=== PATIENT | male | born 1960 | race Caucasian/White ===

== ENCOUNTER 2021-07-01 22:16 | Inpatient (IN) | payer OTHER, SELFPAY ==
[2021-07-01] MEDS ORDERED: Ventolin HFA Inhaler 60 PUFF INHALER ONE (22:35)
[2021-07-01] MEDS ORDERED: predniSONE 20 MG TAB ONE (22:35)
[2021-07-01] MEDS ORDERED: Magnesium 2 GM/50 ML BAG (IN WATER) ONE (22:35)
[2021-07-01 22:40] LABS: #Basophils 0.1 10x3/uL (0.0-0.2); #Neutrophils 14.3 10x3/uL (1.5-8.4); %Basophils 0.3 % (0.0-2.0); %Eosinophils 0.1 % (0.0-6.0); %Lymphocytes 10.2 % (18.0-47.0); %Monocytes 10.8 % (0.0-10.0); %Neutrophils 78.2 % (40.0-75.0); Hemoglobin 16.5 g/dL (13.5-17.5); Mean Corpuscular HGB CONC 33.9 g/dL (32.0-36.0); Mean Corpuscular Hemoglobin 31.7 pg (27.0-33.0); Mean Corpuscular Volume 93.7 fl (81.2-95.1); Mean Platelet Volume 9.9 fl (7.4-10.4); Platelet Count 193 10x3/uL (150-450); RBC Distribution Width 13.1 % (11.5-14.5); White Blood Cell (WBC) Count 18.3 10x3/uL (3.5-10.5)
[2021-07-01 22:53] LABS: ALT (SGPT) 18 U/L (8-55); AST (SGOT) 24 U/L (5-34); Albumin 3.6 g/dL (3.4-4.8); Alkaline Phosphatase 128 U/L (40-110); Anion Gap 14 mmol/L (10-20); BUN (Urea Nitrogen) 18 mg/dL (8.4-25.7); Bilirubin, Total 2.1 mg/dL (0.2-1.2); Calc. Creatinine Clearance 0 mL/min (70-130); Calcium 7.9 mg/dL (7.8-10.44); Carbon Dioxide 18 mmol/L (23-31); Chloride 105 mmol/L (98-107); Glucose 132 mg/dL (80-115); Potassium 3.8 mmol/L (3.5-5.1); Protein, Total 6.6 g/dL (5.8-8.1); Sodium 133 mmol/L (136-145)
[2021-07-01] MEDS ORDERED: Azithromycin 250 MG TAB ONE (22:59)
[2021-07-01] MEDS ORDERED: cefTRIAXone\\ROCEPHIN 2 GM VIAL ONE (22:59)
[2021-07-01] MEDS ORDERED: HYDROcodone/Acetaminophen 5/325 mg Tablet PO PRN (23:29)
[2021-07-01] MEDS ORDERED: Zolpidem Tartrate 5 MG TAB PO PRN (23:29)
[2021-07-01] MEDS ORDERED: Calcium Carbonate 500 MG ChewTAB PO PRN (23:29)
[2021-07-01] MEDS ORDERED: Ondansetron PF 4 MG/2 ML Vial IVP PRN (23:29)
[2021-07-01] MEDS ORDERED: Senokot S 8.6-50 MG TAB PO PRN (23:29)
[2021-07-01 23:43] LABS: SARS-CoV-2 NAA Rapid Test Not Detected (NotDetected)
[2021-07-02 00:34] VITALS: BMI 23.0
[2021-07-02] MEDS ORDERED: Sodium Chloride 0.9% 1,000 ML IV SCH (01:00)
[2021-07-02] MEDS ORDERED: FLU VACC QS2021-22(6MOS UP)/PF 60 MCG/0.5 ML SYRINGE IM ONE (01:15)
[2021-07-02 02:55] LABS: Bilirubin Neg (Negative); Blood, Urine 10 (Negative); Clarity Clear (Clear); Glucose, Urine (Dipstick) Normal (Negative); Ketone, Urine 50 mg/dL (Negative); Leukocyte Negative (Negative); Nitrite Negative (Negative); Protein, Urine (Dipstick) 100 mg/dl (Neg-Trace); Specific Gravity, Urine 1.015 (1.002-1.036)
[2021-07-02 03:05] LABS: Legionella Urinary Ag Negative (Negative); Strep pneumo Urine Ag NEGATIVE (NEGATIVE)
[2021-07-02 03:11] LABS: RBC/HPF 0-3 HPF (0-3)
[2021-07-02 03:12] LABS: Bacteria/HPF Rare-Few HPF (None Seen); Squamous Epithelial 0-3 HPF (0-3)
[2021-07-02] MEDS: Guaifenesin DM 100-10/5 ML UDCUP PO PRN ×2 (04:03→08:44)
[2021-07-02] MEDS: methylPREDNISolone Sod Succ 40 MG VIAL IVP SCH ×4 (05:29→23:14)
[2021-07-02 06:26] LABS: ALT (SGPT) 18 U/L (8-55); AST (SGOT) 28 U/L (5-34); Albumin 3.5 g/dL (3.4-4.8); Alkaline Phosphatase 121 U/L (40-110); Anion Gap 13 mmol/L (10-20); BUN (Urea Nitrogen) 15 mg/dL (8.4-25.7); Bilirubin, Total 1.4 mg/dL (0.2-1.2); Calc. Creatinine Clearance 99 mL/min (70-130); Calcium 8.2 mg/dL (7.8-10.44); Carbon Dioxide 18 mmol/L (23-31); Chloride 107 mmol/L (98-107); Globulin 3.5 g/dL (2.4-3.5); Glucose 191 mg/dL (80-115); Potassium 4.1 mmol/L (3.5-5.1); Sodium 134 mmol/L (136-145)
[2021-07-02 06:51] LABS: #Monocytes 0.6 10x3/uL (0.0-1.1); #Neutrophils 12.2 10x3/uL (1.5-8.4); %Basophils 0.1 % (0.0-2.0); %Lymphocytes 5.8 % (18.0-47.0); %Monocytes 4.2 % (0.0-10.0); %Neutrophils 89.3 % (40.0-75.0); Hemoglobin 15.5 g/dL (13.5-17.5); Mean Corpuscular HGB CONC 33.5 g/dL (32.0-36.0); Mean Corpuscular Hemoglobin 31.6 pg (27.0-33.0); Mean Corpuscular Volume 94.3 fl (81.2-95.1); Mean Platelet Volume 10.9 fl (7.4-10.4); Platelet Count 200 10x3/uL (150-450); RBC Distribution Width 13.2 % (11.5-14.5); Red Blood Cell (RBC) Count 4.91 10x6/uL (4.32-5.72); White Blood Cell (WBC) Count 13.7 10x3/uL (3.5-10.5)
[2021-07-02] MEDS: Mometasone/Formoterol 60 PUFF AER INH SCH ×2 (07:30→19:20)
[2021-07-02] MEDS: Folic Acid 1 MG TAB PO SCH (08:04)
[2021-07-02] MEDS: Enoxaparin Sodium 40 MG/0.4 ML SYRINGE SC SCH (08:04)
[2021-07-02] MEDS: guaiFENesin ER 600 MG TAB PO SCH ×2 (08:04→20:53)
[2021-07-02] MEDS: Nicotine 21 MG PATCH TD SCH (08:05)
[2021-07-02] MEDS: Thiamine 100 MG TAB PO SCH (08:08)
[2021-07-02] MEDS: Cefepime 1 GM in Sodium Chloride 0.9% 100 ML IVPB SCH ×2 (08:47→20:52)
[2021-07-02] MEDS: guaiFENesin/Codeine Phosphate 100 mg/10 mg 5 ml UD Cup PO PRN ×2 (14:46→20:57)
[2021-07-02] MEDS ORDERED: Azithromycin 500 MG VIAL ONE (23:13)
[2021-07-02] MEDS: Benzonatate 100 MG CAP PO PRN (23:14)
[2021-07-02] MEDS: Azithromycin 500 MG in Sodium Chloride 0.9% 250 ML 250 ML IVPB SCH (23:14)
[2021-07-03] MEDS: guaiFENesin/Codeine Phosphate 100 mg/10 mg 5 ml UD Cup PO PRN ×4 (03:27→23:04)
[2021-07-03 04:17] LABS: Hemoglobin 14.4 g/dL (13.5-17.5); Mean Corpuscular HGB CONC 32.8 g/dL (32.0-36.0); Mean Corpuscular Hemoglobin 31.2 pg (27.0-33.0); Mean Platelet Volume 10.7 fl (7.4-10.4); Platelet Count 228 10x3/uL (150-450); RBC Distribution Width 12.9 % (11.5-14.5); Red Blood Cell (RBC) Count 4.62 10x6/uL (4.32-5.72); White Blood Cell (WBC) Count 21.1 10x3/uL (3.5-10.5)
[2021-07-03 04:22] LABS: Anion Gap 11 mmol/L (10-20); BUN (Urea Nitrogen) 20 mg/dL (8.4-25.7); Calc. Creatinine Clearance 104 mL/min (70-130); Calcium 8.4 mg/dL (7.8-10.44); Carbon Dioxide 20 mmol/L (23-31); Chloride 110 mmol/L (98-107); Glucose 186 mg/dL (80-115); Sodium 137 mmol/L (136-145)
[2021-07-03] MEDS: methylPREDNISolone Sod Succ 40 MG VIAL IVP SCH ×4 (05:05→23:05)
[2021-07-03 05:56] LABS: MDiff Complete? YES
[2021-07-03 05:58] LABS: Band 4 % (5-11); Lymphocytes 6 % (21-51); Monocytes 3 % (0-10); Neutrophil 87 % (42-75)
[2021-07-03 06:00] LABS: Platelet Morphology Comment Appears Adequate; RBC Morphology Normal
[2021-07-03] MEDS: Mometasone/Formoterol 60 PUFF AER INH SCH ×2 (07:20→19:02)
[2021-07-03] MEDS: Benzonatate 100 MG CAP PO PRN ×2 (07:45→20:00)
[2021-07-03] MEDS: guaiFENesin ER 600 MG TAB PO SCH ×2 (07:45→20:00)
[2021-07-03] MEDS: Folic Acid 1 MG TAB PO SCH (07:45)
[2021-07-03] MEDS: Enoxaparin Sodium 40 MG/0.4 ML SYRINGE SC SCH (07:46)
[2021-07-03] MEDS: Nicotine 21 MG PATCH TD SCH (07:46)
[2021-07-03] MEDS: Thiamine 100 MG TAB PO SCH (07:53)
[2021-07-03 09:06] LABS: Actual Bicarbonate (HCO3v) 19 mEq/L (22-28); Base Excess -4.6 mEq/L (-2.0 to +3.0); Calcium, Ionized (venous) 1.03 mmol/L (1.16-1.32); Chloride (VBG) 103 mmol/L (98-106); Hemoglobin (Hb) 16.6 g/dL (13.1-17.2); Potassium (VBG) 3.68 mmol/L (3.70-5.30); Puncture Site Other Site; Sodium 133.6 mmol/L (133-146)
[2021-07-03] MEDS: Cefepime 1 GM in Sodium Chloride 0.9% 100 ML IVPB SCH ×2 (09:14→20:00)
[2021-07-03] MEDS: Acetaminophen 325 MG TAB PO PRN (23:04)
[2021-07-03] MEDS: Azithromycin 500 MG in Sodium Chloride 0.9% 250 ML 250 ML IVPB SCH (23:05)
[2021-07-04] MEDS: methylPREDNISolone Sod Succ 40 MG VIAL IVP SCH ×3 (05:34→17:39)
[2021-07-04] MEDS: guaiFENesin/Codeine Phosphate 100 mg/10 mg 5 ml UD Cup PO PRN ×2 (05:34→11:58)
[2021-07-04] MEDS: Mometasone/Formoterol 60 PUFF AER INH SCH ×2 (07:20→20:05)
[2021-07-04 08:27] LABS: Anion Gap 12 mmol/L (10-20); BUN (Urea Nitrogen) 20 mg/dL (8.4-25.7); Calc. Creatinine Clearance 116 mL/min (70-130); Calcium 8.6 mg/dL (7.8-10.44); Carbon Dioxide 23 mmol/L (23-31); Chloride 106 mmol/L (98-107); Glucose 157 mg/dL (80-115); Potassium 4.2 mmol/L (3.5-5.1); Sodium 137 mmol/L (136-145)
[2021-07-04 08:28] LABS: Hemoglobin 14.5 g/dL (13.5-17.5); Mean Corpuscular HGB CONC 33.2 g/dL (32.0-36.0); Mean Corpuscular Hemoglobin 31.6 pg (27.0-33.0); Mean Corpuscular Volume 95.2 fl (81.2-95.1); Mean Platelet Volume 10.8 fl (7.4-10.4); Platelet Count 222 10x3/uL (150-450); RBC Distribution Width 13.2 % (11.5-14.5); Red Blood Cell (RBC) Count 4.59 10x6/uL (4.32-5.72); White Blood Cell (WBC) Count 20.3 10x3/uL (3.5-10.5)
[2021-07-04] MEDS: Enoxaparin Sodium 40 MG/0.4 ML SYRINGE SC SCH (08:54)
[2021-07-04] MEDS: Nicotine 21 MG PATCH TD SCH (08:55)
[2021-07-04] MEDS: Cefepime 1 GM in Sodium Chloride 0.9% 100 ML IVPB SCH ×2 (08:57→20:05)
[2021-07-04 10:16] LABS: Band 1 % (5-11); Lymphocytes 2 % (21-51); Monocytes 10 % (0-10); Neutrophil 87 % (42-75)
[2021-07-04 10:17] LABS: MDiff Complete? YES
[2021-07-04 10:18] LABS: Large Platelets SLIGHT; Platelet Morphology Comment Appears Adequate; RBC Morphology Normal
[2021-07-04] MEDS ORDERED: Furosemide 40 MG/4 ML VIAL SLOW IVP SCH ×2 (10:30→10:45)
[2021-07-04] MEDS: Folic Acid 1 MG TAB PO SCH (10:56)
[2021-07-04] MEDS: Thiamine 100 MG TAB PO SCH (10:57)
[2021-07-04] MEDS: guaiFENesin ER 600 MG TAB PO SCH ×2 (10:57→20:06)
[2021-07-04] MEDS ORDERED: Amlodipine 10 MG TAB PO SCH (13:45)
[2021-07-05] MEDS: Benzonatate 100 MG CAP PO PRN ×2 (00:02→23:41)
[2021-07-05] MEDS: methylPREDNISolone Sod Succ 40 MG VIAL IVP SCH ×5 (00:02→23:36)
[2021-07-05] MEDS: guaiFENesin/Codeine Phosphate 100 mg/10 mg 5 ml UD Cup PO PRN ×3 (00:03→23:41)
[2021-07-05] MEDS: Azithromycin 500 MG in Sodium Chloride 0.9% 250 ML 250 ML IVPB SCH ×2 (00:11→23:35)
[2021-07-05 03:31] LABS: #Monocytes 1.6 10x3/uL (0.0-1.1); #Neutrophils 16.6 10x3/uL (1.5-8.4); %Basophils 0.2 % (0.0-2.0); %Monocytes 8.4 % (0.0-10.0); %Neutrophils 86.9 % (40.0-75.0); Hemoglobin 15.3 g/dL (13.5-17.5); Mean Corpuscular HGB CONC 33.9 g/dL (32.0-36.0); Mean Corpuscular Hemoglobin 31.5 pg (27.0-33.0); Mean Corpuscular Volume 92.8 fl (81.2-95.1); Mean Platelet Volume 10.2 fl (7.4-10.4); Platelet Count 203 10x3/uL (150-450); RBC Distribution Width 13.2 % (11.5-14.5); Red Blood Cell (RBC) Count 4.86 10x6/uL (4.32-5.72); White Blood Cell (WBC) Count 19.1 10x3/uL (3.5-10.5)
[2021-07-05 04:19] LABS: Anion Gap 12 mmol/L (10-20); BUN (Urea Nitrogen) 26 mg/dL (8.4-25.7); Calc. Creatinine Clearance 114 mL/min (70-130); Calcium 8.6 mg/dL (7.8-10.44); Carbon Dioxide 25 mmol/L (23-31); Glucose 179 mg/dL (80-115); Potassium 4.2 mmol/L (3.5-5.1); Sodium 136 mmol/L (136-145)
[2021-07-05 04:34] LABS: Chloride 103 mmol/L (98-107)
[2021-07-05] MEDS: Mometasone/Formoterol 60 PUFF AER INH SCH ×2 (07:58→20:20)
[2021-07-05] MEDS: Enoxaparin Sodium 40 MG/0.4 ML SYRINGE SC SCH (08:45)
[2021-07-05] MEDS: Cefepime 1 GM in Sodium Chloride 0.9% 100 ML IVPB SCH ×2 (08:46→20:20)
[2021-07-05] MEDS: guaiFENesin ER 600 MG TAB PO SCH ×3 (08:47→20:27)
[2021-07-05] MEDS: Folic Acid 1 MG TAB PO SCH (08:47)
[2021-07-05] MEDS: Thiamine 100 MG TAB PO SCH (08:47)
[2021-07-05] MEDS: Amlodipine 10 MG TAB PO SCH (08:48)
[2021-07-05] MEDS: Nicotine 21 MG PATCH TD SCH (08:55)
[2021-07-05 15:14] LABS: Cytoplasmic (C-ANCA) <1:20 titer (Neg:<1:20); Perinuclear (P-ANCA) <1:20 titer (Neg:<1:20)
[2021-07-05] MEDS: Acetaminophen 325 MG TAB PO PRN (20:33)
[2021-07-05 23:36] LABS: Mycoplasma pneumoniae IgG AB 109 U/mL (0-99); Mycoplasma pneumoniae IgM AB Less than 770 U/mL (0-769)
[2021-07-05] MEDS ORDERED: Morphine 4 MG/ML VIAL SLOW IVP SCH (23:45)
[2021-07-06 03:49] LABS: Hemoglobin 15.4 g/dL (13.5-17.5); Mean Corpuscular Hemoglobin 31.7 pg (27.0-33.0); Mean Corpuscular Volume 93.2 fl (81.2-95.1); Mean Platelet Volume 10.4 fl (7.4-10.4); Platelet Count 218 10x3/uL (150-450); RBC Distribution Width 13.2 % (11.5-14.5); Red Blood Cell (RBC) Count 4.86 10x6/uL (4.32-5.72); White Blood Cell (WBC) Count 20.7 10x3/uL (3.5-10.5)
[2021-07-06 04:07] LABS: Anion Gap 11 mmol/L (10-20); BUN (Urea Nitrogen) 27 mg/dL (8.4-25.7); Calc. Creatinine Clearance 113 mL/min (70-130); Calcium 8.5 mg/dL (7.8-10.44); Carbon Dioxide 26 mmol/L (23-31); Chloride 106 mmol/L (98-107); Glucose 203 mg/dL (80-115); Potassium 4.4 mmol/L (3.5-5.1); Sodium 139 mmol/L (136-145)
[2021-07-06] MEDS: methylPREDNISolone Sod Succ 40 MG VIAL IVP SCH ×4 (05:55→23:19)
[2021-07-06 07:19] LABS: Lymphocytes 15 % (21-51); Monocytes 5 % (0-10)
[2021-07-06 07:20] LABS: Neutrophil 80 % (42-75)
[2021-07-06] MEDS: Enoxaparin Sodium 40 MG/0.4 ML SYRINGE SC SCH (07:42)
[2021-07-06] MEDS: Amlodipine 10 MG TAB PO SCH (07:43)
[2021-07-06] MEDS: guaiFENesin ER 600 MG TAB PO SCH (07:43)
[2021-07-06] MEDS: Cefepime 1 GM in Sodium Chloride 0.9% 100 ML IVPB SCH ×2 (07:43→20:28)
[2021-07-06] MEDS: Thiamine 100 MG TAB PO SCH (07:44)
[2021-07-06] MEDS: Folic Acid 1 MG TAB PO SCH (07:44)
[2021-07-06] MEDS: Mometasone/Formoterol 60 PUFF AER INH SCH ×2 (09:00→20:45)
[2021-07-06] MEDS: Nicotine 21 MG PATCH TD SCH (09:15)
[2021-07-06] MEDS: Morphine 4 MG/ML VIAL SLOW IVP PRN ×3 (12:53→20:35)
[2021-07-06] MEDS ORDERED: Morphine 4 MG/ML VIAL SLOW IVP SCH (13:45)
[2021-07-06] MEDS: guaiFENesin/Codeine Phosphate 100 mg/10 mg 5 ml UD Cup PO PRN ×2 (14:51→20:37)
[2021-07-06] MEDS: Azithromycin 500 MG in Sodium Chloride 0.9% 250 ML 250 ML IVPB SCH (23:20)
[2021-07-07] MEDS: Morphine 4 MG/ML VIAL SLOW IVP PRN ×4 (00:59→23:07)
[2021-07-07] MEDS ORDERED: Morphine 4 MG/ML VIAL SLOW IVP SCH (03:30)
[2021-07-07] MEDS: methylPREDNISolone Sod Succ 40 MG VIAL IVP SCH ×4 (05:27→23:07)
[2021-07-07 06:18] LABS: Anion Gap 14 mmol/L (10-20); BUN (Urea Nitrogen) 29 mg/dL (8.4-25.7); Calc. Creatinine Clearance 111 mL/min (70-130); Calcium 8.7 mg/dL (7.8-10.44); Carbon Dioxide 28 mmol/L (23-31); Chloride 103 mmol/L (98-107); Glucose 214 mg/dL (80-115); Potassium 4.7 mmol/L (3.5-5.1); Sodium 140 mmol/L (136-145)
[2021-07-07 06:49] LABS: Hemoglobin 16.2 g/dL (13.5-17.5); Mean Corpuscular HGB CONC 32.6 g/dL (32.0-36.0); Mean Corpuscular Hemoglobin 31.3 pg (27.0-33.0); Mean Corpuscular Volume 95.9 fl (81.2-95.1); Mean Platelet Volume 10.7 fl (7.4-10.4); Platelet Count 233 10x3/uL (150-450); RBC Distribution Width 13.1 % (11.5-14.5); Red Blood Cell (RBC) Count 5.18 10x6/uL (4.32-5.72); White Blood Cell (WBC) Count 23.1 10x3/uL (3.5-10.5)
[2021-07-07] MEDS: Mometasone/Formoterol 60 PUFF AER INH SCH ×2 (07:10→17:46)
[2021-07-07] MEDS: Cefepime 1 GM in Sodium Chloride 0.9% 100 ML IVPB SCH ×2 (07:37→22:34)
[2021-07-07] MEDS: guaiFENesin ER 600 MG TAB PO SCH ×2 (07:41→22:34)
[2021-07-07] MEDS: Folic Acid 1 MG TAB PO SCH (07:41)
[2021-07-07] MEDS: Thiamine 100 MG TAB PO SCH (07:41)
[2021-07-07] MEDS: Amlodipine 10 MG TAB PO SCH (07:42)
[2021-07-07] MEDS: Enoxaparin Sodium 40 MG/0.4 ML SYRINGE SC SCH (07:42)
[2021-07-07] MEDS: Nicotine 21 MG PATCH TD SCH (07:47)
[2021-07-07 08:09] LABS: MDiff Complete? YES
[2021-07-07 08:11] LABS: Band 2 % (5-11); Lymphocytes 2 % (21-51); Monocytes 12 % (0-10); Neutrophil 84 % (42-75); Platelet Morphology Comment Appears Adequate
[2021-07-07 08:12] LABS: RBC Morphology Normal
[2021-07-07] MEDS: guaiFENesin/Codeine Phosphate 100 mg/10 mg 5 ml UD Cup PO PRN (14:48)
[2021-07-07] MEDS: Azithromycin 500 MG in Sodium Chloride 0.9% 250 ML 250 ML IVPB SCH (22:34)
[2021-07-08] MEDS: guaiFENesin/Codeine Phosphate 100 mg/10 mg 5 ml UD Cup PO PRN (00:11)
[2021-07-08] MEDS ORDERED: Morphine 4 MG/ML VIAL SLOW IVP SCH (02:00)
[2021-07-08] MEDS: Morphine 4 MG/ML VIAL SLOW IVP PRN (03:09)
[2021-07-08 04:58] VITALS: BP 155/98; TEMP 96.4
[2021-07-10 16:46] LABS: ANA Symphony (Qualitative) Negative (Negative); ANA Symphony (Quantitative) 0.3 Ratio (< 0.7 Negative); dsDNA IgG Antibody 1.1 IU/mL (<10 Negative)
== END 2021-07-08 04:18 | disposition expired | DRG 871 ==
LOC: CSHERS 22:16 → CSHIMCU 07-02 00:27 → CSHTELE 07-06 13:20
PROVIDERS: ADMIT Student in an Organized Health Care Education/Training Program; ATTEND Internal Medicine
DX: A41.9 Sepsis, unspecified organism (principal); J96.01 Acute respiratory failure with hypoxia; E87.1 Hypo-osmolality and hyponatremia; E87.2 Acidosis; J84.9 Interstitial pulmonary disease, unspecified; Z66 Do not resuscitate; Z51.5 Encounter for palliative care; R65.20 Severe sepsis without septic shock; R91.8 Other nonspecific abnormal finding of lung field; J61 Pneumoconiosis due to asbestos and other mineral fibers; Z20.822 Contact with and (suspected) exposure to COVID-19; J98.4 Other disorders of lung; F10.10 Alcohol abuse, uncomplicated; J43.9 Emphysema, unspecified; Z98.890 Other specified postprocedural states; Z80.3 Family history of malignant neoplasm of breast; Z87.891 Personal history of nicotine dependence; Z80.9 Family history of malignant neoplasm, unspecified; Z56.89 Other problems related to employment
CPT/HCPCS: 0240U; 36415; 36416; 71045; 71275; 80048; 80053; 81001; 82805; 83520; 83605; 83880; 84145; 84484; 85025; 85379; 86038; 86200; 86225; 86256; 87040; 87449; 87899; 93005; 93306; 94640; 94664; 94760; 96365; 96375; J0456; J0692; J0696; J1650; J1940; J2270; J2920; J3475; J3490; J7050; J7512; J7620